=== PATIENT | female | born 1965 | race African-American/Black ===

== ENCOUNTER 2018-09-22 21:10 | Inpatient (IN) | payer MEDICAID ==
[~2018-09-22] VITALS: Ht 170.2 cm; Wt 168.3 kg
[2018-09-22] MEDS: CEFEPIME 2,000 MG in DEXT 5% WATER 100 ML IV SCH (06:00)
[~2018-09-22 21:10] MED LIST: AMLO5TAB88 PO; CILO100T PO; FURO-151 PO; GLYB5TAB7; METH4TAB3 PO; OMEP40CA34; PENT400T29; PULM50 HHN; REV20 PO; SIMV20TA2
[2018-09-22] MEDS ORDERED: KETOROLAC 30MG/ML VIAL IV STA (22:29)
[2018-09-22] MEDS ORDERED: AZITHROMYCIN 500 MG in DEXT 5% WATER 250 ML IV SCH (23:00)
[2018-09-22] MEDS ORDERED: VANCOMYCIN 1 G PREMIX 200 ML IV SCH (23:00)
[2018-09-23] MEDS ORDERED: DIAZEPAM 5 MG TABLET PO SCH (00:22)
[2018-09-23 00:31] LABS: BASOPHILS % 0.3 % (0.0-2.0); EOSINOPHILS % 1.2 % (0.0-5.0); HEMATOCRIT. 44.1 % (36.0-48.0); HEMOGLOBIN. 14.1 g/dL (12.0-16.0); LYMPHOCYTES % 10.9 % (20.0-50.0); MEAN CORPUSCULAR HEMOGLOBIN 26.7 pg (28.0-32.0); MEAN CORPUSCULAR VOLUME 83.4 fL (81.0-99.0); MEAN PLATELET VOLUME 9.4 fl (7.4-10.4); MONOCYTES % 6.6 % (2.0-8.0); PLATELET 141 x1000/uL (130-400); RED BLOOD CELL COUNT 5.28 mill/uL (4.2-5.4); RED CELL DISTRIBUTION WIDTH 16.3 % (11.6-14.6)
[2018-09-23 00:36] LABS: CHLORIDE 102 mEq/L (98-107)
[2018-09-23 00:37] LABS: INR 1.2; PARTIAL THROMBOPLASTIN TIME 25.9 sec (23.4-31.0)
[2018-09-23 00:51] LABS: BETA HYDROXYBUTYRATE 0.1 mMol/L (0.0-0.3)
[2018-09-23] MEDS ORDERED: SODIUM CHLORIDE 0.9% 1,000 ML IV ONE (01:15)
[2018-09-23 08:38] LABS: CLARITY URINE CLOUDY (CLEAR); COLOR URINE DARK YELLOW (YELLOW); KETONES URINE TRACE (NEGATIVE); LEUKOCYTE ESTERASE URINE 1+ (NEGATIVE); NITRITE URINE NEGATIVE (NEGATIVE); OCCULT BLOOD URINE TRACE (NEGATIVE); PROTEIN URINE 1+ (NEGATIVE); SPECIFIC GRAVITY URINE 1.028 (1.005-1.030)
[2018-09-23] MEDS: CEFEPIME 2,000 MG in DEXT 5% WATER 100 ML IV SCH (11:00)
[2018-09-23] MEDS ORDERED: CLONIDINE 0.1MG TABLET PO PRN (11:00)
[2018-09-23] MEDS: ONDANSETRON HCL 4MG/2ML INJ IV PRN ×3 (12:00→20:12)
[2018-09-23] MEDS: LORAZEPAM 2MG/ML CPJ IV PRN (12:00)
[2018-09-23] MEDS: MORPHINE SULFATE 4 MG/ML CPJ (NOT FOR IM USE) IV PRN ×2 (12:00→20:13)
[2018-09-23] MEDS: FUROSEMIDE 40MG TABLET PO SCH (12:00)
[2018-09-23 12:18] LABS: PHOSPHORUS 2.8 mg/dL (2.5-4.9)
[2018-09-23] MEDS: SILDENAFIL CITRATE 20MG TABLET PO SCH ×2 (12:22→21:38)
[2018-09-23] MEDS: PENTOXIFYLLINE 400MG TABLET PO SCH ×2 (13:00→17:44)
[2018-09-23 14:00] VITALS: BP 105/62
[2018-09-23 15:00] VITALS: BP 129/71
[2018-09-23] MEDS ORDERED: ASPI-1159 PO (15:03)
[2018-09-23] MEDS ORDERED: SITA50TA3 PO (15:03)
[2018-09-23] MEDS ORDERED: PANT40SU PO (15:03)
[2018-09-23] MEDS ORDERED: MISO200T PO (15:03)
[2018-09-23] MEDS ORDERED: DICL75TA5 PO (15:03)
[2018-09-23] MEDS ORDERED: LOSA25TA3 PO (15:03)
[2018-09-23] MEDS ORDERED: DICY20TA11 PO (15:03)
[2018-09-23] MEDS ORDERED: KDUR10 PO (15:03)
[2018-09-23 16:00] VITALS: BP 109/71
[2018-09-23 16:02] VITALS: BP 129/71
[2018-09-23] MEDS ORDERED: CILOSTAZOL 100 MG PO SCH (17:00)
[2018-09-23] MEDS ORDERED: DEXTROSE 50% WATER 50ML SYRINGE IV PRN (18:00)
[2018-09-23] MEDS: CILOSTAZOL 100MG TABLET PO SCH (18:02)
[2018-09-23] MEDS: INSULIN LISPRO 100 UNITS/ML SUBCUT SCH ×2 (18:20→21:00)
[2018-09-23 20:00] VITALS: BP 100/57
[2018-09-23] MEDS: BLOOD SUGAR DIAGNOSTIC STRIP TEST SCH (21:22)
[2018-09-23] MEDS: METRONIDAZOLE 500 MG PREMIX 100 ML IV SCH (21:38)
[2018-09-24] VITALS: BP 104/53
[2018-09-24] MEDS: LORAZEPAM 2MG/ML CPJ IV PRN ×2 (00:37→14:28)
[2018-09-24] MEDS: MORPHINE SULFATE 4 MG/ML CPJ (NOT FOR IM USE) IV PRN ×4 (01:55→21:04)
[2018-09-24 03:40] VITALS: BP 97/60
[2018-09-24] MEDS: BLOOD SUGAR DIAGNOSTIC STRIP TEST SCH ×4 (05:40→21:34)
[2018-09-24] MEDS: SILDENAFIL CITRATE 20MG TABLET PO SCH ×4 (06:00→21:46)
[2018-09-24] MEDS: METRONIDAZOLE 500 MG PREMIX 100 ML IV SCH ×3 (06:14→21:05)
[2018-09-24 07:05] LABS: BASOPHILS % 0.7 % (0.0-2.0); EOSINOPHILS % 1.3 % (0.0-5.0); HEMATOCRIT. 40.6 % (36.0-48.0); HEMOGLOBIN. 12.6 g/dL (12.0-16.0); MEAN CORPUSCULAR VOLUME 83.5 fL (81.0-99.0); MEAN PLATELET VOLUME 9.7 fl (7.4-10.4); MONOCYTES % 10.1 % (2.0-8.0); NEUTROPHILS % 73.9 % (40.0-76.0); PLATELET 137 x1000/uL (130-400); RED BLOOD CELL COUNT 4.86 mill/uL (4.2-5.4); RED CELL DISTRIBUTION WIDTH 16.4 % (11.6-14.6)
[2018-09-24] MEDS ORDERED: CEFTRIAXONE 2 G PREMIX 50 ML IV SCH (07:30)
[2018-09-24 08:00] VITALS: BP 128/68
[2018-09-24] MEDS: INSULIN LISPRO 100 UNITS/ML SUBCUT SCH ×4 (08:10→21:46)
[2018-09-24] MEDS: CEFTRIAXONE 2 G in DEXTROSE 5% WATER 50 ML IV SCH (09:00)
[2018-09-24] MEDS: FUROSEMIDE 40MG TABLET PO SCH (09:21)
[2018-09-24] MEDS: CILOSTAZOL 100MG TABLET PO SCH ×2 (09:21→17:39)
[2018-09-24] MEDS: PENTOXIFYLLINE 400MG TABLET PO SCH ×2 (09:23→14:16)
[2018-09-24] MEDS: AMLODIPINE 5MG TABLET PO SCH (09:23)
[2018-09-24] MEDS: OMEPRAZOLE 20MG CAPSULE EXTENDED RELEASE PO SCH ×2 (10:00→21:04)
[2018-09-24] MEDS: ONDANSETRON HCL 4MG/2ML INJ IV PRN ×3 (10:49→21:04)
[2018-09-24 12:00] VITALS: BP 130/79
[2018-09-24] MEDS: IPRATROPIUM/ALBUTEROL 0.5-3(2.5)MG/3ML NEB INH PRN (13:17)
[2018-09-24 16:00] VITALS: BP 113/41
[2018-09-24] MEDS ORDERED: CILO100T PO (16:18)
[2018-09-24] MEDS ORDERED: AMLO5TAB88 PO (16:18)
[2018-09-24] MEDS ORDERED: REV20 PO (16:18)
[2018-09-24 20:00] VITALS: BP 127/61
[2018-09-24 21:59] LABS: CREATINE KINASE MB FRACTION 2.3 ng/mL (0.5-3.6)
[2018-09-25] VITALS: BP 130/53
[2018-09-25] MEDS: ACETAMINOPHEN 325MG TABLET PO PRN ×2 (02:40→14:36)
[2018-09-25] MEDS: MORPHINE SULFATE 4 MG/ML CPJ (NOT FOR IM USE) IV PRN ×2 (03:25→09:39)
[2018-09-25 04:00] VITALS: BP 125/56
[2018-09-25] MEDS: LORAZEPAM 2MG/ML CPJ IV PRN ×2 (04:38→22:36)
[2018-09-25] MEDS: BLOOD SUGAR DIAGNOSTIC STRIP TEST SCH ×4 (05:35→20:47)
[2018-09-25] MEDS: HYDROCODONE/ACETAMINOPHEN 5/325MG TABLET PO PRN ×2 (05:36→20:44)
[2018-09-25] MEDS: METRONIDAZOLE 500 MG PREMIX 100 ML IV SCH ×3 (05:37→22:28)
[2018-09-25] MEDS: SILDENAFIL CITRATE 20MG TABLET PO SCH ×3 (05:37→22:28)
[2018-09-25] MEDS: PENTOXIFYLLINE 400MG TABLET PO SCH ×3 (08:10→10:09)
[2018-09-25] MEDS: IPRATROPIUM/ALBUTEROL 0.5-3(2.5)MG/3ML NEB INH PRN (09:20)
[2018-09-25] MEDS: INSULIN LISPRO 100 UNITS/ML SUBCUT SCH ×4 (09:40→20:47)
[2018-09-25] MEDS: OMEPRAZOLE 20MG CAPSULE EXTENDED RELEASE PO SCH ×2 (09:42→20:42)
[2018-09-25] MEDS: CEFTRIAXONE 2 G in DEXTROSE 5% WATER 50 ML IV SCH (09:42)
[2018-09-25] MEDS: CILOSTAZOL 100MG TABLET PO SCH ×2 (09:44→17:00)
[2018-09-25] MEDS: AMLODIPINE 5MG TABLET PO SCH (09:44)
[2018-09-25] MEDS: FUROSEMIDE 40MG TABLET PO SCH (09:44)
[2018-09-25 11:52] LABS: BG BASE EXCESS 1.7 mmol/L (-2.0-2.0); BG CARBOXYHEMOGLOBIN 1.6 % (0.5-1.5); BG DEOXYHEMOGLOBIN 28.8 % (0.0-5.0); BG FRACTION INSPIRED OXYGEN 21; BG HCO3 ACT 26.1 mmol/L (22.0-26.0); BG METHEMOGLOBIN 0.3 % (0.0-1.5); BG OXYGEN SATURATION 70.6 % (92.0-98.5); BG OXYHEMOGLOBIN 69.3 % (94.0-97.0); BG PCO2 40.1 mmHg (35.0-45.0); BG PH 7.431 (7.350-7.450); BG PO2 37.5 mmHg (75.0-100.0); BG SAMPLE SITE LEFT RADIAL; BG TOTAL HEMOGLOBIN 14.4 g/dL (12.0-18.0); BG VENT MODE ROOM AIR
[2018-09-25 14:46] LABS: BG BASE EXCESS 3.7 mmol/L (-2.0-2.0); BG CARBOXYHEMOGLOBIN 1.2 % (0.5-1.5); BG DEOXYHEMOGLOBIN 5.2 % (0.0-5.0); BG FRACTION INSPIRED OXYGEN 100; BG HCO3 ACT 28.1 mmol/L (22.0-26.0); BG METHEMOGLOBIN 0.5 % (0.0-1.5); BG OXYGEN SATURATION 94.7 % (92.0-98.5); BG OXYHEMOGLOBIN 93.1 % (94.0-97.0); BG PCO2 41.7 mmHg (35.0-45.0); BG PH 7.446 (7.350-7.450); BG PO2 73.5 mmHg (75.0-100.0); BG SAMPLE SITE RIGHT RADIAL; BG TOTAL HEMOGLOBIN 13.6 g/dL (12.0-18.0); BG VENT MODE MASK - NRB
[2018-09-25] MEDS: IPRATROPIUM/ALBUTEROL 0.5-3(2.5)MG/3ML NEB HHN SCH ×2 (15:00→20:21)
[2018-09-25] MEDS ORDERED: FUROSEMIDE 40MG/4ML VIAL IVP NR (15:15)
[2018-09-25] MEDS ORDERED: LIDOCAINE HCL/PF 1% 2ML VIAL ONE (15:36)
[2018-09-25 19:42] VITALS: BP 117/58
[2018-09-25 23:51] VITALS: BP 96/58
[2018-09-26] MEDS: HYDROCODONE/ACETAMINOPHEN 5/325MG TABLET PO PRN ×4 (01:54→20:25)
[2018-09-26] MEDS: IPRATROPIUM/ALBUTEROL 0.5-3(2.5)MG/3ML NEB HHN SCH ×3 (03:53→20:58)
[2018-09-26 04:00] VITALS: BP 116/57
[2018-09-26] MEDS: METRONIDAZOLE 500 MG PREMIX 100 ML IV SCH ×3 (05:38→21:08)
[2018-09-26] MEDS: SILDENAFIL CITRATE 20MG TABLET PO SCH ×3 (05:38→21:08)
[2018-09-26] MEDS: IPRATROPIUM/ALBUTEROL 0.5-3(2.5)MG/3ML NEB INH PRN ×2 (05:43→07:50)
[2018-09-26 06:24] LABS: BASOPHILS % 0.8 % (0.0-2.0); EOSINOPHILS % 1.5 % (0.0-5.0); HEMATOCRIT. 38.5 % (36.0-48.0); HEMOGLOBIN. 12.2 g/dL (12.0-16.0); LYMPHOCYTES % 9.6 % (20.0-50.0); MEAN CORPUSCULAR HEMOGLOBIN 26.5 pg (28.0-32.0); MEAN CORPUSCULAR VOLUME 83.6 fL (81.0-99.0); MEAN PLATELET VOLUME 9.9 fl (7.4-10.4); MONOCYTES % 10.1 % (2.0-8.0); PLATELET 120 x1000/uL (130-400); RED CELL DISTRIBUTION WIDTH 16.4 % (11.6-14.6)
[2018-09-26 06:43] LABS: CHLORIDE 102 mEq/L (98-107)
[2018-09-26 08:00] VITALS: BP 141/62
[2018-09-26] MEDS: BLOOD SUGAR DIAGNOSTIC STRIP TEST SCH ×4 (08:13→20:34)
[2018-09-26] MEDS: FUROSEMIDE 40MG TABLET PO SCH (10:51)
[2018-09-26] MEDS: OMEPRAZOLE 20MG CAPSULE EXTENDED RELEASE PO SCH (10:51)
[2018-09-26] MEDS: CEFTRIAXONE 2 G in DEXTROSE 5% WATER 50 ML IV SCH (10:51)
[2018-09-26] MEDS: AMLODIPINE 5MG TABLET PO SCH (10:51)
[2018-09-26] MEDS: CILOSTAZOL 100MG TABLET PO SCH ×2 (10:52→18:34)
[2018-09-26] MEDS: PENTOXIFYLLINE 400MG TABLET PO SCH ×2 (10:52→18:34)
[2018-09-26] MEDS: INSULIN LISPRO 100 UNITS/ML SUBCUT SCH ×4 (10:54→20:41)
[2018-09-26] MEDS: LORAZEPAM 2MG/ML CPJ IV PRN ×2 (11:16→20:25)
[2018-09-26 12:00] VITALS: BP 138/79
[2018-09-26] MEDS: ONDANSETRON HCL 4MG/2ML INJ IV PRN (14:44)
[2018-09-26 16:00] VITALS: BP 106/47
[2018-09-26 20:10] VITALS: BP 98/58
[2018-09-26] MEDS: FAMOTIDINE 20MG TABLET PO SCH (20:25)
[2018-09-27 00:05] VITALS: BP 112/59
[2018-09-27] MEDS: IPRATROPIUM/ALBUTEROL 0.5-3(2.5)MG/3ML NEB HHN SCH ×4 (01:02→20:59)
[2018-09-27] MEDS: LORAZEPAM 2MG/ML CPJ IV PRN ×3 (02:46→20:41)
[2018-09-27] MEDS: HYDROCODONE/ACETAMINOPHEN 5/325MG TABLET PO PRN ×3 (02:46→20:40)
[2018-09-27 04:00] VITALS: BP 127/61
[2018-09-27] MEDS: SILDENAFIL CITRATE 20MG TABLET PO SCH ×3 (05:34→20:40)
[2018-09-27] MEDS: METRONIDAZOLE 500 MG PREMIX 100 ML IV SCH ×3 (05:35→21:13)
[2018-09-27 06:37] LABS: BASOPHILS % 0.5 % (0.0-2.0); EOSINOPHILS % 1.2 % (0.0-5.0); HEMATOCRIT. 36.1 % (36.0-48.0); HEMOGLOBIN. 11.7 g/dL (12.0-16.0); LYMPHOCYTES % 8.9 % (20.0-50.0); MEAN CORPUSCULAR HEMOGLOBIN 27.4 pg (28.0-32.0); MEAN CORPUSCULAR VOLUME 84.1 fL (81.0-99.0); MEAN PLATELET VOLUME 9.8 fl (7.4-10.4); MONOCYTES % 9.8 % (2.0-8.0); NEUTROPHILS % 79.6 % (40.0-76.0); PLATELET 107 x1000/uL (130-400); RED BLOOD CELL COUNT 4.29 mill/uL (4.2-5.4); RED CELL DISTRIBUTION WIDTH 16.8 % (11.6-14.6)
[2018-09-27 06:39] LABS: CHLORIDE 102 mEq/L (98-107)
[2018-09-27] MEDS: BLOOD SUGAR DIAGNOSTIC STRIP TEST SCH ×4 (07:40→20:41)
[2018-09-27 08:00] VITALS: BP 161/81
[2018-09-27] MEDS: INSULIN LISPRO 100 UNITS/ML SUBCUT SCH ×4 (08:23→20:56)
[2018-09-27] MEDS: CEFTRIAXONE 2 G in DEXTROSE 5% WATER 50 ML IV SCH (08:32)
[2018-09-27] MEDS: FUROSEMIDE 40MG TABLET PO SCH (08:33)
[2018-09-27] MEDS: PENTOXIFYLLINE 400MG TABLET PO SCH ×2 (08:33→17:48)
[2018-09-27] MEDS: CILOSTAZOL 100MG TABLET PO SCH ×2 (08:33→17:48)
[2018-09-27] MEDS: FAMOTIDINE 20MG TABLET PO SCH ×2 (08:33→20:40)
[2018-09-27] MEDS: AMLODIPINE 5MG TABLET PO SCH (08:34)
[2018-09-27 12:00] VITALS: BP 116/63
[2018-09-27] MEDS ORDERED: IOHEXOL-350 100 ML BOTTLE ONE (13:43)
[2018-09-27 16:00] VITALS: BP 108/56
[2018-09-27] MEDS ORDERED: POTASSIUM CHLORIDE 20MEQ TABLET SR PO NR (17:15)
[2018-09-27] MEDS: ENOXAPARIN 150MG/ML SYR SUBCUT SCH (17:48)
[2018-09-27 20:00] VITALS: BP 115/63
[2018-09-28 00:05] VITALS: BP 110/62
[2018-09-28] MEDS: IPRATROPIUM/ALBUTEROL 0.5-3(2.5)MG/3ML NEB HHN SCH ×4 (01:14→20:22)
[2018-09-28] MEDS: HYDROCODONE/ACETAMINOPHEN 5/325MG TABLET PO PRN ×2 (01:27→08:21)
[2018-09-28] MEDS: LORAZEPAM 2MG/ML CPJ IV PRN ×2 (01:53→08:19)
[2018-09-28 04:00] VITALS: BP 119/55
[2018-09-28] MEDS: METRONIDAZOLE 500 MG PREMIX 100 ML IV SCH ×3 (05:28→22:09)
[2018-09-28] MEDS: ENOXAPARIN 150MG/ML SYR SUBCUT SCH ×2 (05:28→16:46)
[2018-09-28] MEDS: SILDENAFIL CITRATE 20MG TABLET PO SCH ×3 (05:28→22:14)
[2018-09-28 06:29] LABS: BASOPHILS % 0.8 % (0.0-2.0); EOSINOPHILS % 2.8 % (0.0-5.0); HEMATOCRIT. 35.5 % (36.0-48.0); HEMOGLOBIN. 11.6 g/dL (12.0-16.0); LYMPHOCYTES % 12.4 % (20.0-50.0); MEAN CORPUSCULAR HEMOGLOBIN 27.5 pg (28.0-32.0); MEAN CORPUSCULAR VOLUME 83.9 fL (81.0-99.0); MEAN PLATELET VOLUME 9.7 fl (7.4-10.4); PLATELET 118 x1000/uL (130-400); RED BLOOD CELL COUNT 4.23 mill/uL (4.2-5.4); RED CELL DISTRIBUTION WIDTH 17.1 % (11.6-14.6)
[2018-09-28 07:39] LABS: CHLORIDE 103 mEq/L (98-107)
[2018-09-28] MEDS: INSULIN LISPRO 100 UNITS/ML SUBCUT SCH ×4 (07:46→22:09)
[2018-09-28] MEDS: BLOOD SUGAR DIAGNOSTIC STRIP TEST SCH ×4 (07:47→21:00)
[2018-09-28 08:00] VITALS: BP 128/71
[2018-09-28] MEDS: CEFTRIAXONE 2 G in DEXTROSE 5% WATER 50 ML IV SCH (08:19)
[2018-09-28] MEDS: CILOSTAZOL 100MG TABLET PO SCH ×2 (08:20→16:46)
[2018-09-28] MEDS: PENTOXIFYLLINE 400MG TABLET PO SCH ×2 (08:20→16:46)
[2018-09-28] MEDS: FUROSEMIDE 40MG TABLET PO SCH (08:20)
[2018-09-28] MEDS: AMLODIPINE 5MG TABLET PO SCH (08:20)
[2018-09-28] MEDS: FAMOTIDINE 20MG TABLET PO SCH ×2 (08:20→22:15)
[2018-09-28 10:32] LABS: BG BASE EXCESS 4.8 mmol/L (-2.0-2.0); BG CARBOXYHEMOGLOBIN 0.5 % (0.5-1.5); BG DEOXYHEMOGLOBIN 6.4 % (0.0-5.0); BG FRACTION INSPIRED OXYGEN 100; BG HCO3 ACT 29.1 mmol/L (22.0-26.0); BG METHEMOGLOBIN 0.5 % (0.0-1.5); BG OXYGEN SATURATION 93.5 % (92.0-98.5); BG OXYHEMOGLOBIN 92.6 % (94.0-97.0); BG PCO2 42.3 mmHg (35.0-45.0); BG PH 7.456 (7.350-7.450); BG PO2 64.8 mmHg (75.0-100.0); BG SAMPLE SITE RIGHT RADIAL; BG TOTAL HEMOGLOBIN 13.1 g/dL (12.0-18.0); BG VENT MODE VAPOTHERM
[2018-09-28] MEDS ORDERED: BENZONATATE 100MG CAPSULE PO NR (11:30)
[2018-09-28 12:00] VITALS: BP 147/71
[2018-09-28] MEDS: GUAIFENESIN 200MG/10ML SUGAR FREE UDC PO PRN (12:57)
[2018-09-28] MEDS: ACETAMINOPHEN 325MG TABLET PO PRN (12:59)
[2018-09-28] MEDS ORDERED: LIDOCAINE HCL/PF 1% 2ML VIAL ONE (15:55)
[2018-09-28 16:00] VITALS: BP 116/59
[2018-09-28 20:00] VITALS: BP 136/70
[2018-09-29] VITALS: BP 103/66
[2018-09-29] MEDS: ACETAMINOPHEN 325MG TABLET PO PRN ×3 (00:39→22:16)
[2018-09-29] MEDS: IPRATROPIUM/ALBUTEROL 0.5-3(2.5)MG/3ML NEB HHN SCH ×4 (00:42→21:07)
[2018-09-29 04:00] VITALS: BP 112/75
[2018-09-29] MEDS: METRONIDAZOLE 500 MG PREMIX 100 ML IV SCH ×3 (06:24→21:13)
[2018-09-29] MEDS: SILDENAFIL CITRATE 20MG TABLET PO SCH ×3 (06:26→21:13)
[2018-09-29] MEDS: ENOXAPARIN 150MG/ML SYR SUBCUT SCH ×2 (06:27→17:34)
[2018-09-29] MEDS: BLOOD SUGAR DIAGNOSTIC STRIP TEST SCH ×4 (06:36→21:00)
[2018-09-29 06:47] LABS: BASOPHILS % 0.5 % (0.0-2.0); EOSINOPHILS % 2.7 % (0.0-5.0); HEMOGLOBIN. 11.9 g/dL (12.0-16.0); LYMPHOCYTES % 11.4 % (20.0-50.0); MEAN CORPUSCULAR HEMOGLOBIN 26.9 pg (28.0-32.0); MEAN PLATELET VOLUME 9.8 fl (7.4-10.4); MONOCYTES % 7.7 % (2.0-8.0); NEUTROPHILS % 77.7 % (40.0-76.0); PLATELET 130 x1000/uL (130-400); RED BLOOD CELL COUNT 4.41 mill/uL (4.2-5.4); RED CELL DISTRIBUTION WIDTH 17.1 % (11.6-14.6)
[2018-09-29 06:50] LABS: CHLORIDE 102 mEq/L (98-107)
[2018-09-29] MEDS: GUAIFENESIN 200MG/10ML SUGAR FREE UDC PO PRN ×3 (07:02→21:12)
[2018-09-29 08:00] VITALS: BP 134/66
[2018-09-29 08:05] LABS: BG BASE EXCESS 3.4 mmol/L (-2.0-2.0); BG CARBOXYHEMOGLOBIN 0.5 % (0.5-1.5); BG DEOXYHEMOGLOBIN 6.1 % (0.0-5.0); BG FRACTION INSPIRED OXYGEN 100; BG HCO3 ACT 27.8 mmol/L (22.0-26.0); BG METHEMOGLOBIN 0.2 % (0.0-1.5); BG OXYGEN SATURATION 93.9 % (92.0-98.5); BG OXYHEMOGLOBIN 93.2 % (94.0-97.0); BG PCO2 41.8 mmHg (35.0-45.0); BG PH 7.441 (7.350-7.450); BG PO2 70.9 mmHg (75.0-100.0); BG SAMPLE SITE RIGHT BRACHIAL; BG TOTAL HEMOGLOBIN 12.1 g/dL (12.0-18.0); BG VENT MODE VAPOTHERM
[2018-09-29] MEDS: FAMOTIDINE 20MG TABLET PO SCH ×2 (09:21→21:12)
[2018-09-29] MEDS: CILOSTAZOL 100MG TABLET PO SCH ×2 (09:22→17:33)
[2018-09-29] MEDS: CEFTRIAXONE 2 G in DEXTROSE 5% WATER 50 ML IV SCH (09:22)
[2018-09-29] MEDS: FUROSEMIDE 40MG TABLET PO SCH (09:22)
[2018-09-29] MEDS: PENTOXIFYLLINE 400MG TABLET PO SCH ×2 (09:22→17:33)
[2018-09-29] MEDS: AMLODIPINE 5MG TABLET PO SCH (09:22)
[2018-09-29] MEDS: INSULIN LISPRO 100 UNITS/ML SUBCUT SCH ×4 (09:26→22:49)
[2018-09-29] MEDS ORDERED: POTASSIUM CHLORIDE 20MEQ TABLET SR PO SCH (11:30)
[2018-09-29] MEDS: ONDANSETRON HCL 4MG/2ML INJ IV PRN (11:39)
[2018-09-29 12:00] VITALS: BP 118/50
[2018-09-29] MEDS ORDERED: LIDOCAINE HCL/PF 1% 2ML VIAL ONE (15:56)
[2018-09-29 16:00] VITALS: BP 114/68
[2018-09-29 20:00] VITALS: BP 112/59
[2018-09-30] VITALS (7 sets, daily range): BP systolic 102–157; BP diastolic 38–81
[2018-09-30] MEDS: IPRATROPIUM/ALBUTEROL 0.5-3(2.5)MG/3ML NEB HHN SCH ×4 (02:19→19:46)
[2018-09-30] MEDS: ACETAMINOPHEN 325MG TABLET PO PRN (03:33)
[2018-09-30 06:54] LABS: BASOPHILS % 0.4 % (0.0-2.0); EOSINOPHILS % 2.3 % (0.0-5.0); HEMATOCRIT. 35.7 % (36.0-48.0); HEMOGLOBIN. 11.6 g/dL (12.0-16.0); LYMPHOCYTES % 11.8 % (20.0-50.0); MEAN CORPUSCULAR HEMOGLOBIN 27.5 pg (28.0-32.0); MEAN CORPUSCULAR VOLUME 84.2 fL (81.0-99.0); MEAN PLATELET VOLUME 9.6 fl (7.4-10.4); MONOCYTES % 7.8 % (2.0-8.0); NEUTROPHILS % 77.7 % (40.0-76.0); PLATELET 154 x1000/uL (130-400); RED BLOOD CELL COUNT 4.24 mill/uL (4.2-5.4); RED CELL DISTRIBUTION WIDTH 17.3 % (11.6-14.6)
[2018-09-30 06:55] LABS: CHLORIDE 104 mEq/L (98-107)
[2018-09-30] MEDS: ENOXAPARIN 150MG/ML SYR SUBCUT SCH ×2 (07:10→17:30)
[2018-09-30] MEDS: SILDENAFIL CITRATE 20MG TABLET PO SCH ×3 (07:15→22:00)
[2018-09-30] MEDS: METRONIDAZOLE 500 MG PREMIX 100 ML IV SCH ×3 (07:15→22:00)
[2018-09-30] MEDS: BLOOD SUGAR DIAGNOSTIC STRIP TEST SCH ×4 (07:15→20:58)
[2018-09-30] MEDS: CEFTRIAXONE 2 G in DEXTROSE 5% WATER 50 ML IV SCH (09:00)
[2018-09-30] MEDS: PSYLLIUM SEED PACKET PO SCH ×2 (10:00→17:32)
[2018-09-30] MEDS: CILOSTAZOL 100MG TABLET PO SCH ×2 (10:24→17:32)
[2018-09-30] MEDS: DIAZEPAM 5 MG TABLET PO SCH (10:24)
[2018-09-30] MEDS: PENTOXIFYLLINE 400MG TABLET PO SCH ×2 (10:24→17:37)
[2018-09-30] MEDS: AMLODIPINE 5MG TABLET PO SCH (10:25)
[2018-09-30] MEDS: FUROSEMIDE 40MG TABLET PO SCH (10:25)
[2018-09-30] MEDS: FAMOTIDINE 20MG TABLET PO SCH ×2 (10:25→20:26)
[2018-09-30] MEDS: HYDROCODONE/ACETAMINOPHEN 5/325MG TABLET PO PRN ×2 (10:52→20:27)
[2018-09-30 12:31] LABS: BG BASE EXCESS 3.2 mmol/L (-2.0-2.0); BG DEOXYHEMOGLOBIN 9.2 % (0.0-5.0); BG FRACTION INSPIRED OXYGEN 100; BG HCO3 ACT 27.2 mmol/L (22.0-26.0); BG METHEMOGLOBIN 0.2 % (0.0-1.5); BG OXYGEN SATURATION 90.7 % (92.0-98.5); BG OXYHEMOGLOBIN 89.6 % (94.0-97.0); BG PCO2 39.3 mmHg (35.0-45.0); BG PH 7.458 (7.350-7.450); BG PO2 58.5 mmHg (75.0-100.0); BG SAMPLE SITE LEFT RADIAL; BG TOTAL HEMOGLOBIN 13.3 g/dL (12.0-18.0); BG VENT MODE VAPOTHERM
[2018-09-30] MEDS: INSULIN LISPRO 100 UNITS/ML SUBCUT SCH ×4 (13:05→21:22)
[2018-10-01 00:59] VITALS: BP 109/38
[2018-10-01] MEDS: IPRATROPIUM/ALBUTEROL 0.5-3(2.5)MG/3ML NEB HHN SCH ×4 (02:03→20:16)
[2018-10-01] MEDS: HYDROCODONE/ACETAMINOPHEN 5/325MG TABLET PO PRN ×6 (02:52→22:40)
[2018-10-01 04:00] VITALS: BP 118/47
[2018-10-01] MEDS: GUAIFENESIN 200MG/10ML SUGAR FREE UDC PO PRN (06:03)
[2018-10-01] MEDS: SILDENAFIL CITRATE 20MG TABLET PO SCH ×3 (06:04→21:18)
[2018-10-01] MEDS: ENOXAPARIN 150MG/ML SYR SUBCUT SCH ×2 (06:07→18:00)
[2018-10-01] MEDS: BLOOD SUGAR DIAGNOSTIC STRIP TEST SCH ×4 (06:12→21:23)
[2018-10-01 07:07] LABS: BASOPHILS % 0.6 % (0.0-2.0); EOSINOPHILS % 2.7 % (0.0-5.0); HEMOGLOBIN. 11.6 g/dL (12.0-16.0); LYMPHOCYTES % 12.5 % (20.0-50.0); MEAN CORPUSCULAR HEMOGLOBIN 26.9 pg (28.0-32.0); MEAN CORPUSCULAR VOLUME 83.6 fL (81.0-99.0); MEAN PLATELET VOLUME 8.8 fl (7.4-10.4); MONOCYTES % 6.8 % (2.0-8.0); NEUTROPHILS % 77.4 % (40.0-76.0); PLATELET 175 x1000/uL (130-400); RED BLOOD CELL COUNT 4.31 mill/uL (4.2-5.4); RED CELL DISTRIBUTION WIDTH 17.7 % (11.6-14.6)
[2018-10-01] MEDS: INSULIN LISPRO 100 UNITS/ML SUBCUT SCH ×4 (07:28→21:00)
[2018-10-01 08:00] VITALS: BP 115/61
[2018-10-01 08:08] LABS: CHLORIDE 103 mEq/L (98-107)
[2018-10-01] MEDS: DIAZEPAM 5 MG TABLET PO SCH ×2 (09:00→12:07)
[2018-10-01] MEDS: AMLODIPINE 5MG TABLET PO SCH (09:04)
[2018-10-01] MEDS: CEFTRIAXONE 2 G in DEXTROSE 5% WATER 50 ML IV SCH (09:04)
[2018-10-01] MEDS: PSYLLIUM SEED PACKET PO SCH ×2 (09:04→18:00)
[2018-10-01] MEDS: PENTOXIFYLLINE 400MG TABLET PO SCH ×2 (09:05→18:00)
[2018-10-01] MEDS: FAMOTIDINE 20MG TABLET PO SCH ×2 (09:05→21:17)
[2018-10-01] MEDS: FUROSEMIDE 40MG TABLET PO SCH (09:05)
[2018-10-01] MEDS: CILOSTAZOL 100MG TABLET PO SCH ×2 (09:05→18:00)
[2018-10-01] MEDS ORDERED: POTASSIUM CHLORIDE 20MEQ TABLET SR PO SCH (09:30)
[2018-10-01] MEDS: BENZONATATE 100MG CAPSULE PO SCH ×3 (10:27→21:17)
[2018-10-01 12:00] VITALS: BP 104/51
[2018-10-01] MEDS: ONDANSETRON HCL 4MG/2ML INJ IV PRN (14:23)
[2018-10-01 20:00] VITALS: BP 107/52
[2018-10-01] MEDS: NYSTATIN POWDER 15GM TOP SCH (21:19)
[2018-10-02] VITALS: BP 92/57
[2018-10-02] MEDS: IPRATROPIUM/ALBUTEROL 0.5-3(2.5)MG/3ML NEB HHN SCH ×4 (01:46→21:10)
[2018-10-02] MEDS: HYDROCODONE/ACETAMINOPHEN 5/325MG TABLET PO PRN ×3 (02:44→14:57)
[2018-10-02 04:00] VITALS: BP 93/52
[2018-10-02] MEDS: ENOXAPARIN 150MG/ML SYR SUBCUT SCH ×2 (06:11→17:59)
[2018-10-02] MEDS: BENZONATATE 100MG CAPSULE PO SCH ×3 (06:11→21:22)
[2018-10-02] MEDS: SILDENAFIL CITRATE 20MG TABLET PO SCH ×3 (06:11→21:23)
[2018-10-02] MEDS: BLOOD SUGAR DIAGNOSTIC STRIP TEST SCH ×4 (06:12→21:33)
[2018-10-02 07:37] LABS: BASOPHILS % 0.7 % (0.0-2.0); EOSINOPHILS % 3.9 % (0.0-5.0); HEMATOCRIT. 35.4 % (36.0-48.0); HEMOGLOBIN. 11.3 g/dL (12.0-16.0); MEAN CORPUSCULAR HEMOGLOBIN 26.8 pg (28.0-32.0); MEAN CORPUSCULAR VOLUME 84.4 fL (81.0-99.0); MEAN PLATELET VOLUME 9.4 fl (7.4-10.4); MONOCYTES % 7.8 % (2.0-8.0); NEUTROPHILS % 74.6 % (40.0-76.0); PLATELET 213 x1000/uL (130-400); RED CELL DISTRIBUTION WIDTH 17.4 % (11.6-14.6)
[2018-10-02 08:00] VITALS: BP 124/61
[2018-10-02] MEDS: INSULIN LISPRO 100 UNITS/ML SUBCUT SCH ×4 (08:02→21:49)
[2018-10-02] MEDS: DIAZEPAM 5 MG TABLET PO SCH (08:44)
[2018-10-02] MEDS: PENTOXIFYLLINE 400MG TABLET PO SCH ×2 (08:45→17:58)
[2018-10-02] MEDS: FAMOTIDINE 20MG TABLET PO SCH ×2 (08:45→21:22)
[2018-10-02] MEDS: NYSTATIN POWDER 15GM TOP SCH ×2 (08:45→17:26)
[2018-10-02] MEDS: CILOSTAZOL 100MG TABLET PO SCH ×2 (08:45→17:58)
[2018-10-02] MEDS: FUROSEMIDE 40MG TABLET PO SCH (08:45)
[2018-10-02] MEDS: AMLODIPINE 5MG TABLET PO SCH (08:45)
[2018-10-02] MEDS: PSYLLIUM SEED PACKET PO SCH (08:46)
[2018-10-02 10:13] LABS: CHLORIDE 103 mEq/L (98-107)
[2018-10-02 10:29] LABS: PHOSPHORUS 2.6 mg/dL (2.5-4.9)
[2018-10-02 12:00] VITALS: BP 125/74
[2018-10-02 16:00] VITALS: BP 107/59
[2018-10-02 20:00] VITALS: BP 134/84
[2018-10-02] MEDS: HYDROCODONE/ACETAMINOPHEN 10/325MG TABLET PO PRN (21:24)
[2018-10-03] VITALS: BP 117/59
[2018-10-03] MEDS: IPRATROPIUM/ALBUTEROL 0.5-3(2.5)MG/3ML NEB HHN SCH ×4 (02:48→20:52)
[2018-10-03 04:02] VITALS: BP 133/64
[2018-10-03] MEDS: SILDENAFIL CITRATE 20MG TABLET PO SCH ×3 (05:07→21:11)
[2018-10-03] MEDS: BENZONATATE 100MG CAPSULE PO SCH ×3 (05:07→21:11)
[2018-10-03] MEDS: ENOXAPARIN 150MG/ML SYR SUBCUT SCH ×2 (05:07→18:36)
[2018-10-03] MEDS: HYDROCODONE/ACETAMINOPHEN 10/325MG TABLET PO PRN ×3 (05:08→21:11)
[2018-10-03] MEDS: BLOOD SUGAR DIAGNOSTIC STRIP TEST SCH ×4 (06:14→20:05)
[2018-10-03 07:05] LABS: BASOPHILS % 0.9 % (0.0-2.0); EOSINOPHILS % 4.2 % (0.0-5.0); HEMATOCRIT. 36.6 % (36.0-48.0); HEMOGLOBIN. 11.7 g/dL (12.0-16.0); LYMPHOCYTES % 16.5 % (20.0-50.0); MEAN CORPUSCULAR HEMOGLOBIN 26.9 pg (28.0-32.0); MEAN CORPUSCULAR VOLUME 83.7 fL (81.0-99.0); MEAN PLATELET VOLUME 9.4 fl (7.4-10.4); MONOCYTES % 7.4 % (2.0-8.0); PLATELET 256 x1000/uL (130-400); RED BLOOD CELL COUNT 4.37 mill/uL (4.2-5.4); RED CELL DISTRIBUTION WIDTH 17.5 % (11.6-14.6)
[2018-10-03 08:00] VITALS: BP 118/60
[2018-10-03] MEDS: AMLODIPINE 5MG TABLET PO SCH (08:25)
[2018-10-03] MEDS: FAMOTIDINE 20MG TABLET PO SCH ×2 (08:25→20:11)
[2018-10-03] MEDS: FUROSEMIDE 40MG TABLET PO SCH (08:25)
[2018-10-03] MEDS: CILOSTAZOL 100MG TABLET PO SCH ×2 (08:26→18:36)
[2018-10-03] MEDS: DIPHENOXYLATE/ATROPINE 2.5/0.025MG TABLET PO PRN ×2 (08:26→20:11)
[2018-10-03] MEDS: DIAZEPAM 5 MG TABLET PO SCH (08:26)
[2018-10-03] MEDS: PENTOXIFYLLINE 400MG TABLET PO SCH ×2 (08:29→18:35)
[2018-10-03] MEDS: INSULIN LISPRO 100 UNITS/ML SUBCUT SCH ×4 (08:31→20:12)
[2018-10-03 09:16] LABS: CHLORIDE 103 mEq/L (98-107)
[2018-10-03 09:25] LABS: PHOSPHORUS 2.7 mg/dL (2.5-4.9)
[2018-10-03] MEDS: ONDANSETRON HCL 4MG/2ML INJ IV PRN (10:55)
[2018-10-03 12:00] VITALS: BP 130/66
[2018-10-03] MEDS ORDERED: MAGNESIUM 2 G PREMIX 50 ML IV SCH (12:00)
[2018-10-03] MEDS: POTASSIUM CHLORIDE 20MEQ TABLET SR PO SCH (12:24)
[2018-10-03] MEDS: NYSTATIN POWDER 15GM TOP SCH ×2 (12:27→18:35)
[2018-10-03] MEDS: DIPHENHYDRAMINE 25MG CAPSULE PO PRN ×2 (13:56→23:33)
[2018-10-03 16:00] VITALS: BP 110/44
[2018-10-03 20:00] VITALS: BP 128/67
[2018-10-03] MEDS: LORAZEPAM 0.5MG TABLET PO PRN (22:05)
[2018-10-04 00:16] VITALS: BP 152/53
[2018-10-04] MEDS: IPRATROPIUM/ALBUTEROL 0.5-3(2.5)MG/3ML NEB HHN SCH ×4 (01:29→21:25)
[2018-10-04] MEDS: DIAZEPAM 5 MG TABLET PO PRN ×2 (01:42→20:15)
[2018-10-04] MEDS: HYDROCODONE/ACETAMINOPHEN 10/325MG TABLET PO PRN ×3 (03:32→22:03)
[2018-10-04 04:00] VITALS: BP 126/55
[2018-10-04] MEDS: SILDENAFIL CITRATE 20MG TABLET PO SCH ×3 (05:42→21:49)
[2018-10-04] MEDS: BENZONATATE 100MG CAPSULE PO SCH ×3 (05:42→22:13)
[2018-10-04] MEDS: ENOXAPARIN 150MG/ML SYR SUBCUT SCH ×2 (05:42→18:08)
[2018-10-04] MEDS: BLOOD SUGAR DIAGNOSTIC STRIP TEST SCH ×4 (07:33→20:18)
[2018-10-04] MEDS: INSULIN LISPRO 100 UNITS/ML SUBCUT SCH ×4 (07:33→21:47)
[2018-10-04 07:38] LABS: BASOPHILS % 1.1 % (0.0-2.0); EOSINOPHILS % 3.7 % (0.0-5.0); HEMATOCRIT. 35.8 % (36.0-48.0); HEMOGLOBIN. 11.5 g/dL (12.0-16.0); LYMPHOCYTES % 16.7 % (20.0-50.0); MEAN CORPUSCULAR HEMOGLOBIN 27.2 pg (28.0-32.0); MEAN CORPUSCULAR VOLUME 84.7 fL (81.0-99.0); MEAN PLATELET VOLUME 9.2 fl (7.4-10.4); NEUTROPHILS % 68.5 % (40.0-76.0); PLATELET 292 x1000/uL (130-400); RED BLOOD CELL COUNT 4.23 mill/uL (4.2-5.4); RED CELL DISTRIBUTION WIDTH 17.5 % (11.6-14.6)
[2018-10-04 08:00] VITALS: BP 127/59
[2018-10-04] MEDS: PENTOXIFYLLINE 400MG TABLET PO SCH ×2 (08:28→18:08)
[2018-10-04] MEDS: AMLODIPINE 5MG TABLET PO SCH (09:02)
[2018-10-04] MEDS: FUROSEMIDE 80MG TABLET PO SCH (09:02)
[2018-10-04] MEDS: POTASSIUM CHLORIDE 20MEQ TABLET SR PO SCH (09:02)
[2018-10-04] MEDS: CILOSTAZOL 100MG TABLET PO SCH ×2 (09:02→17:34)
[2018-10-04] MEDS: FAMOTIDINE 20MG TABLET PO SCH ×2 (09:03→20:14)
[2018-10-04] MEDS: NYSTATIN POWDER 15GM TOP SCH ×2 (09:08→17:00)
[2018-10-04] MEDS: HYDROCODONE/ACETAMINOPHEN 5/325MG TABLET PO PRN (09:48)
[2018-10-04 12:00] VITALS: BP 147/91
[2018-10-04 12:14] LABS: CHLORIDE 103 mEq/L (98-107)
[2018-10-04 12:21] LABS: PHOSPHORUS 2.8 mg/dL (2.5-4.9)
[2018-10-04] MEDS: DIPHENHYDRAMINE 25MG CAPSULE PO PRN ×2 (15:05→22:13)
[2018-10-04 16:00] VITALS: BP 109/60
[2018-10-04 20:00] VITALS: BP 121/50
[2018-10-05 00:07] VITALS: BP 106/51
[2018-10-05] MEDS: IPRATROPIUM/ALBUTEROL 0.5-3(2.5)MG/3ML NEB HHN SCH ×4 (01:18→21:49)
[2018-10-05 04:00] VITALS: BP 105/56
[2018-10-05] MEDS: HYDROCODONE/ACETAMINOPHEN 10/325MG TABLET PO PRN ×3 (04:29→19:39)
[2018-10-05] MEDS: BENZONATATE 100MG CAPSULE PO SCH ×3 (05:52→21:10)
[2018-10-05] MEDS: DIPHENHYDRAMINE 25MG CAPSULE PO PRN ×3 (05:53→21:23)
[2018-10-05] MEDS: SILDENAFIL CITRATE 20MG TABLET PO SCH ×3 (05:53→21:09)
[2018-10-05] MEDS: ENOXAPARIN 150MG/ML SYR SUBCUT SCH ×2 (05:55→17:27)
[2018-10-05] MEDS: BLOOD SUGAR DIAGNOSTIC STRIP TEST SCH ×4 (07:46→20:56)
[2018-10-05] MEDS: INSULIN LISPRO 100 UNITS/ML SUBCUT SCH ×4 (07:46→21:21)
[2018-10-05 08:00] VITALS: BP 133/68
[2018-10-05] MEDS: CILOSTAZOL 100MG TABLET PO SCH ×2 (08:53→17:27)
[2018-10-05] MEDS: PENTOXIFYLLINE 400MG TABLET PO SCH ×2 (08:53→17:27)
[2018-10-05] MEDS: FAMOTIDINE 20MG TABLET PO SCH ×2 (08:53→21:08)
[2018-10-05] MEDS: POTASSIUM CHLORIDE 20MEQ TABLET SR PO SCH (08:53)
[2018-10-05] MEDS: AMLODIPINE 5MG TABLET PO SCH (08:53)
[2018-10-05] MEDS: FUROSEMIDE 80MG TABLET PO SCH (08:54)
[2018-10-05] MEDS: NYSTATIN POWDER 15GM TOP SCH ×2 (09:28→17:28)
[2018-10-05 12:00] VITALS: BP 119/68
[2018-10-05 16:00] VITALS: BP 167/66
[2018-10-05] MEDS: GUAIFENESIN 200MG/10ML SUGAR FREE UDC PO PRN (19:38)
[2018-10-05] MEDS: ONDANSETRON HCL 4MG/2ML INJ IV PRN (19:39)
[2018-10-05 20:00] VITALS: BP 126/61
[2018-10-05 20:47] LABS: HEMATOCRIT 36.9 % (36.0-48.0); MEAN CORPUSCULAR HEMOGLOBIN 27.2 pg (28.0-32.0); MEAN CORPUSCULAR VOLUME 83.6 fL (81.0-99.0); PLATELET 392 x1000/uL (130-400); RED BLOOD CELL COUNT 4.41 mill/uL (4.2-5.4); RED CELL DISTRIBUTION WIDTH 17.7 % (11.6-14.6)
[2018-10-05 20:58] LABS: CHLORIDE 102 mEq/L (98-107)
[2018-10-05] MEDS: DIAZEPAM 5 MG TABLET PO PRN (21:09)
[2018-10-06] VITALS (7 sets, daily range): BP systolic 102–133; BP diastolic 51–90
[2018-10-06] MEDS: IPRATROPIUM/ALBUTEROL 0.5-3(2.5)MG/3ML NEB HHN SCH ×4 (02:23→21:36)
[2018-10-06] MEDS: HYDROCODONE/ACETAMINOPHEN 10/325MG TABLET PO PRN ×4 (02:45→21:17)
[2018-10-06] MEDS: DIPHENHYDRAMINE 25MG CAPSULE PO PRN ×2 (04:08→10:41)
[2018-10-06] MEDS: ENOXAPARIN 150MG/ML SYR SUBCUT SCH (06:40)
[2018-10-06] MEDS: BENZONATATE 100MG CAPSULE PO SCH ×3 (06:40→20:57)
[2018-10-06] MEDS: SILDENAFIL CITRATE 20MG TABLET PO SCH ×3 (06:40→20:57)
[2018-10-06] MEDS: GUAIFENESIN 200MG/10ML SUGAR FREE UDC PO PRN ×2 (06:47→10:41)
[2018-10-06] MEDS: BLOOD SUGAR DIAGNOSTIC STRIP TEST SCH ×4 (07:40→20:57)
[2018-10-06] MEDS: INSULIN LISPRO 100 UNITS/ML SUBCUT SCH ×4 (08:10→21:00)
[2018-10-06] MEDS: CILOSTAZOL 100MG TABLET PO SCH ×2 (08:13→16:42)
[2018-10-06] MEDS: PENTOXIFYLLINE 400MG TABLET PO SCH ×2 (08:13→16:43)
[2018-10-06] MEDS: FAMOTIDINE 20MG TABLET PO SCH ×2 (08:13→20:57)
[2018-10-06] MEDS: POTASSIUM CHLORIDE 20MEQ TABLET SR PO SCH (08:14)
[2018-10-06] MEDS: AMLODIPINE 5MG TABLET PO SCH (08:14)
[2018-10-06] MEDS: FUROSEMIDE 80MG TABLET PO SCH (08:14)
[2018-10-06] MEDS: NYSTATIN POWDER 15GM TOP SCH ×2 (08:15→17:10)
[2018-10-06 10:06] LABS: HEMATOCRIT 37.7 % (36.0-48.0); HEMOGLOBIN 12.2 g/dL (12.0-16.0); MEAN CORPUSCULAR HEMOGLOBIN 27.1 pg (28.0-32.0); MEAN CORPUSCULAR VOLUME 83.9 fL (81.0-99.0); PLATELET 407 x1000/uL (130-400); RED BLOOD CELL COUNT 4.49 mill/uL (4.2-5.4); RED CELL DISTRIBUTION WIDTH 17.7 % (11.6-14.6)
[2018-10-06 16:25] LABS: CHLORIDE 100 mEq/L (98-107)
[2018-10-06] MEDS: ONDANSETRON HCL 4MG/2ML INJ IV PRN (20:57)
[2018-10-06] MEDS: DIAZEPAM 5 MG TABLET PO PRN (20:57)
[2018-10-06] MEDS ORDERED: MAGNESIUM/ALUMINUM HYDROXIDE/SIMETHICONE 30ML UDC PO PRN (23:15)
[2018-10-07] MEDS: IPRATROPIUM/ALBUTEROL 0.5-3(2.5)MG/3ML NEB HHN SCH ×4 (00:05→21:20)
[2018-10-07 04:00] VITALS: BP 120/72
[2018-10-07] MEDS: SILDENAFIL CITRATE 20MG TABLET PO SCH ×3 (05:19→20:56)
[2018-10-07] MEDS: BENZONATATE 100MG CAPSULE PO SCH ×3 (05:19→20:57)
[2018-10-07 07:16] LABS: BASOPHILS % 0.9 % (0.0-2.0); EOSINOPHILS % 3.7 % (0.0-5.0); HEMATOCRIT. 35.8 % (36.0-48.0); HEMOGLOBIN. 11.6 g/dL (12.0-16.0); LYMPHOCYTES % 15.9 % (20.0-50.0); MEAN CORPUSCULAR HEMOGLOBIN 27.1 pg (28.0-32.0); MEAN CORPUSCULAR VOLUME 83.4 fL (81.0-99.0); MEAN PLATELET VOLUME 9.1 fl (7.4-10.4); MONOCYTES % 11.6 % (2.0-8.0); NEUTROPHILS % 67.9 % (40.0-76.0); PLATELET 410 x1000/uL (130-400); RED BLOOD CELL COUNT 4.29 mill/uL (4.2-5.4)
[2018-10-07] MEDS: BLOOD SUGAR DIAGNOSTIC STRIP TEST SCH ×4 (07:40→21:00)
[2018-10-07 07:43] VITALS: BP 123/60
[2018-10-07] MEDS: INSULIN LISPRO 100 UNITS/ML SUBCUT SCH ×4 (07:58→21:00)
[2018-10-07] MEDS: FUROSEMIDE 80MG TABLET PO SCH (07:58)
[2018-10-07] MEDS: CILOSTAZOL 100MG TABLET PO SCH ×2 (07:58→17:35)
[2018-10-07] MEDS: HYDROCODONE/ACETAMINOPHEN 10/325MG TABLET PO PRN ×2 (07:59→14:12)
[2018-10-07 12:00] VITALS: BP 136/77
[2018-10-07] MEDS: PENTOXIFYLLINE 400MG TABLET PO SCH ×2 (12:11→17:35)
[2018-10-07] MEDS: FAMOTIDINE 20MG TABLET PO SCH ×2 (12:11→20:57)
[2018-10-07] MEDS: DIPHENHYDRAMINE 25MG CAPSULE PO PRN (12:12)
[2018-10-07] MEDS: AMLODIPINE 5MG TABLET PO SCH (12:12)
[2018-10-07] MEDS: POTASSIUM CHLORIDE 20MEQ TABLET SR PO SCH (12:12)
[2018-10-07] MEDS: NYSTATIN POWDER 15GM TOP SCH ×2 (12:26→17:36)
[2018-10-07 12:46] LABS: BG BASE EXCESS 6.6 mmol/L (-2.0-2.0); BG CARBOXYHEMOGLOBIN 0.9 % (0.5-1.5); BG DEOXYHEMOGLOBIN 8.1 % (0.0-5.0); BG FRACTION INSPIRED OXYGEN 100; BG METHEMOGLOBIN 0.1 % (0.0-1.5); BG OXYGEN SATURATION 91.8 % (92.0-98.5); BG OXYHEMOGLOBIN 90.9 % (94.0-97.0); BG PCO2 48.8 mmHg (35.0-45.0); BG PH 7.435 (7.350-7.450); BG PO2 63.1 mmHg (75.0-100.0); BG SAMPLE SITE RIGHT RADIAL; BG VENT MODE VAPOTHERM
[2018-10-07 13:59] LABS: CHLORIDE 101 mEq/L (98-107)
[2018-10-07 16:00] VITALS: BP 108/59
[2018-10-07 16:01] LABS: HEMATOCRIT 36.9 % (36.0-48.0); HEMOGLOBIN 11.9 g/dL (12.0-16.0); MEAN CORPUSCULAR VOLUME 83.8 fL (81.0-99.0); PLATELET 425 x1000/uL (130-400); RED CELL DISTRIBUTION WIDTH 17.6 % (11.6-14.6)
[2018-10-07 16:09] LABS: CHLORIDE 102 mEq/L (98-107)
[2018-10-07 20:00] VITALS: BP 117/62
[2018-10-07] MEDS: DIAZEPAM 5 MG TABLET PO PRN (20:56)
[2018-10-07] MEDS: ENOXAPARIN 150MG/ML SYR SUBCUT SCH (20:57)
[2018-10-07] MEDS: ONDANSETRON HCL 4MG/2ML INJ IV PRN (20:57)
[2018-10-08 00:05] VITALS: BP 107/50
[2018-10-08] MEDS: DIPHENHYDRAMINE 25MG CAPSULE PO PRN ×2 (00:12→12:50)
[2018-10-08] MEDS: ACETAMINOPHEN 325MG TABLET PO PRN (00:12)
[2018-10-08] MEDS: IPRATROPIUM/ALBUTEROL 0.5-3(2.5)MG/3ML NEB HHN SCH ×3 (01:13→20:10)
[2018-10-08 04:00] VITALS: BP 125/65
[2018-10-08] MEDS: SILDENAFIL CITRATE 20MG TABLET PO SCH ×2 (05:34→15:08)
[2018-10-08] MEDS: LORAZEPAM 0.5MG TABLET PO PRN (05:34)
[2018-10-08] MEDS: BENZONATATE 100MG CAPSULE PO SCH ×2 (05:34→15:08)
[2018-10-08] MEDS: BLOOD SUGAR DIAGNOSTIC STRIP TEST SCH ×3 (07:40→17:40)
[2018-10-08 08:00] VITALS: BP 137/81
[2018-10-08] MEDS: INSULIN LISPRO 100 UNITS/ML SUBCUT SCH ×3 (08:10→18:10)
[2018-10-08] MEDS ORDERED: HYDROCODONE/ACETAMINOPHEN 10/325MG TABLET PO PRN (08:45)
[2018-10-08] MEDS: AMLODIPINE 5MG TABLET PO SCH (08:51)
[2018-10-08] MEDS: FAMOTIDINE 20MG TABLET PO SCH (08:51)
[2018-10-08] MEDS: CILOSTAZOL 100MG TABLET PO SCH ×2 (08:51→18:20)
[2018-10-08] MEDS: PENTOXIFYLLINE 400MG TABLET PO SCH ×2 (08:51→18:20)
[2018-10-08] MEDS: FUROSEMIDE 80MG TABLET PO SCH (08:51)
[2018-10-08] MEDS: POTASSIUM CHLORIDE 20MEQ TABLET SR PO SCH (08:52)
[2018-10-08] MEDS: ENOXAPARIN 150MG/ML SYR SUBCUT SCH (08:53)
[2018-10-08] MEDS: NYSTATIN POWDER 15GM TOP SCH ×2 (09:00→18:22)
[2018-10-08 10:42] LABS: HEMATOCRIT 35.5 % (36.0-48.0); HEMOGLOBIN 11.5 g/dL (12.0-16.0); MEAN CORPUSCULAR HEMOGLOBIN 27.1 pg (28.0-32.0); MEAN CORPUSCULAR VOLUME 83.6 fL (81.0-99.0); PLATELET 441 x1000/uL (130-400); RED BLOOD CELL COUNT 4.24 mill/uL (4.2-5.4); RED CELL DISTRIBUTION WIDTH 17.6 % (11.6-14.6)
[2018-10-08 11:08] LABS: CHLORIDE 101 mEq/L (98-107)
[2018-10-08 12:00] VITALS: BP 155/71
[2018-10-08 16:00] VITALS: BP 123/58
[2018-10-08] MEDS ORDERED: PENT400T11 PO (16:02)
[2018-10-08] MEDS ORDERED: FURO80TA3 PO (16:02)
[2018-10-08] MEDS ORDERED: [UNRECOGNIZED DRUG - CODE] SUBCUT (16:02)
[2018-10-08] MEDS ORDERED: FAMO20TA8 PO (16:02)
[2018-10-08] MEDS ORDERED: POTA20TA82 PO (16:02)
[2018-10-08] MEDS: DIAZEPAM 5 MG TABLET PO PRN (19:39)
[2018-10-08 20:00] VITALS: BP 128/73
== END 2018-10-08 20:40 | disposition short-term general hospital (02) | DRG 720 ==
LOC: ER 21:10 → 7WST 23:21 → EDBEDREQTM 23:23 → EDBEDREQ 23:23 → ENRESERV 09-23 12:38
PROVIDERS: ADMIT Internal Medicine; ATTEND Internal Medicine
DX: A41.9 Sepsis, unspecified organism (principal); J96.21 Acute and chronic respiratory failure with hypoxia; I26.99 Other pulmonary embolism without acute cor pulmonale; I13.0 Hypertensive heart and chronic kidney disease with heart failure and stage 1 through stage 4 chronic kidney disease, or unspecified chronic kidney disease; J18.9 Pneumonia, unspecified organism; K80.00 Calculus of gallbladder with acute cholecystitis without obstruction; I27.20 Pulmonary hypertension, unspecified; N17.9 Acute kidney failure, unspecified; E66.01 Morbid (severe) obesity due to excess calories; I50.9 Heart failure, unspecified; E11.22 Type 2 diabetes mellitus with diabetic chronic kidney disease; J44.0 Chronic obstructive pulmonary disease with (acute) lower respiratory infection; K21.9 Gastro-esophageal reflux disease without esophagitis; K43.9 Ventral hernia without obstruction or gangrene; M19.90 Unspecified osteoarthritis, unspecified site; N18.9 Chronic kidney disease, unspecified; R74.0 Nonspecific elevation of levels of transaminase and lactic acid dehydrogenase [LDH]; E87.2 Acidosis; N39.0 Urinary tract infection, site not specified; E11.65 Type 2 diabetes mellitus with hyperglycemia; E78.5 Hyperlipidemia, unspecified; F41.9 Anxiety disorder, unspecified; G47.33 Obstructive sleep apnea (adult) (pediatric); Z59.9 Problem related to housing and economic circumstances, unspecified; Z99.81 Dependence on supplemental oxygen; Z98.891 History of uterine scar from previous surgery; Z88.0 Allergy status to penicillin; Z86.718 Personal history of other venous thrombosis and embolism; Z86.711 Personal history of pulmonary embolism; Z79.82 Long term (current) use of aspirin; Z68.43 Body mass index [BMI] 50.0-59.9, adult; Z79.4 Long term (current) use of insulin
CPT/HCPCS: 36415; 36600; 71045; 71275; 74176; 76705; 78580; 80048; 80061; 82010; 82375; 82550; 82553; 82805; 82962; 83036; 83605; 83735; 83880; 84100; 84484; 85027; 93005; 93306; 93970; 94640; 94660; 96365; 96375; 97110; 97162; 97166; 97535; 99285; J0456; J0692; J0696; J1650; J1815; J1885; J2060; J2270; J2405; J3370; J3475; J3490; J7040; J7050; J7060; J7620; Q0163; Q9967